=== PATIENT | female | born 1975 | race Caucasian/White ===

== ENCOUNTER 2017-10-18 12:37 | Emergency (ER) | payer MEDICAID ==
[~2017-10-18] VITALS: Ht 167.6 cm; Wt 48.3 kg
[~2017-10-18 12:37] MED LIST: AZIT250T PO; BENZ-16 PO
[2017-10-18 13:05] VITALS: BP 116/79
[2017-10-18] MEDS ORDERED: CODE118S4 PO (14:38)
[2017-10-18] MEDS ORDERED: ALBU8HFA PO (14:38)
[2017-10-18] MEDS ORDERED: AZIT-57 PO (14:38)
== END 2017-10-18 15:10 | disposition home or self-care (01) ==
LOC: ER 12:38
DX: J18.9 Pneumonia, unspecified organism (principal); Z90.710 Acquired absence of both cervix and uterus
CPT/HCPCS: 71046; 99284

== ENCOUNTER 2019-01-18 22:15 | Inpatient (IN) | payer MEDICAID ==
[~2019-01-18] VITALS: Ht 167.6 cm; Wt 66.0 kg
[~2019-01-18 22:15] MED LIST changes: -BENZ-16 PO; +METO-292 PO
[2019-01-18] MEDS ORDERED: normal saline 1000ML IV soln IVB ONE (23:35)
[2019-01-19] VITALS (10 sets, daily range): BP systolic 83–94; BP diastolic 44–64
[2019-01-19] MEDS: morphine 4 MG/ML inj SYRINge IV PRN ×2 (00:09→00:48)
[2019-01-19] MEDS: diatr meglu/diatrizoate 30ml oral sol.-(3 dose) bottle PO SCH ×3 (00:17→02:01)
[2019-01-19 00:29] LABS: BASOPHILS # (AUTO) 0.1 X10'3 (0-0.2); BASOPHILS % (AUTO) 0.6 % (0-1); EOSINOPHILS # (AUTO) 0.1 X10'3 (0-0.9); EOSINOPHILS % (AUTO) 1.1 % (0-6); HEMATOCRIT 42.2 % (35.0-45.0); HEMOGLOBIN 13.7 g/dl (12.0-16.0); LYMPHOCYTES % (AUTO) 15.8 % (21-51); MEAN CORPUSCULAR HEMOGLOBIN 30.9 PG (27.0-31.0); MEAN CORPUSCULAR HGB CONC 32.5 g/dL (33.0-36.5); MEAN CORPUSCULAR VOLUME 95.2 FL (78-98); MEAN PLATELET VOLUME 8.1 FL (7.4-10.4); MONOCYTES # (AUTO) 0.8 X10'3 (0-0.9); MONOCYTES % (AUTO) 6.2 % (2-12); NEUTROPHILS # (AUTO) 9.5 X10'3 (1.8-7.7); NEUTROPHILS % (AUTO) 76.3 % (42-75); PLATELET COUNT 295 X10'3 (140-440); RED BLOOD COUNT 4.43 X10'6 (4.20-5.60); RED CELL DISTRIBUTION WIDTH 13.1 % (11.5-14.5); WHITE BLOOD COUNT 12.5 X10'3 (4.5-11.0)
[2019-01-19 00:38] LABS: ALANINE AMINOTRANSFERASE 32 U/L (12-78); ALBUMIN 3.2 G/DL (3.4-5.0); ALBUMIN/GLOBULIN RATIO 0.8 (1.1-1.5); ALKALINE PHOSPHATASE 94 IU/L (46-116); ANION GAP 8 (8-16); ASPARTATE AMINO TRANSFERASE 26 U/L (10-37); BILIRUBIN,TOTAL 0.4 MG/DL (0.1-1.0); BLOOD UREA NITROGEN 12 MG/DL (7-18); BUN/CREATININE RATIO 16.2 (6.6-38.0); CHLORIDE 104 MMOL/L (99-107); CREATININE 0.74 MG/DL (0.40-0.90); GLUCOSE 86 MG/DL (70-104); LIPASE 121 U/L (73-393); POTASSIUM 3.3 MMOL/L (3.5-5.1); SODIUM 137 MMOL/L (135-145); TOTAL CARBON DIOXIDE 25.3 MMOL/L (24-32); TOTAL PROTEIN 7.1 G/DL (6.4-8.2); eGFR 86 ML/MIN
[2019-01-19 01:41] LABS: CLARITY,URINE CLOUDY (Clear); COLOR,URINE YELLOW (Yellow); GLUCOSE, URINE NEGATIVE (Neg); KETONES,URINE NEGATIVE (Neg); LEUKOCYTE ESTERASE ,URINE MODERATE (Neg); NITRITES, URINE POSITIVE (Neg); OCCULT BLOOD,URINE SMALL (Neg); PROTEIN,URINE NEGATIVE (Neg); UROBILINOGEN,URINE 0.2 E.U/dL (0.2-1.0)
[2019-01-19] MEDS ORDERED: DICY10CA88 PO (01:42)
[2019-01-19 01:46] LABS: UA COLLECTION TYPE NON-SPECIFIED
[2019-01-19 01:47] LABS: BACTERIA,URINE 3+ /HPF (Neg); MUCUS STRANDS MODERATE /LPF (Neg); SQUAMOUS EPITHELIAL CELL,UR MANY /LPF (FEW)
[2019-01-19 01:48] LABS: WBC,URINE 20-30 /HPF (0-4)
[2019-01-19] MEDS ORDERED: morphine 4 MG/ML inj SYRINge IV ONE ×4 (02:35→06:00)
[2019-01-19] MEDS ORDERED: normal saline 1000ML IV soln IVB ONE ×3 (02:45→08:30)
[2019-01-19] MEDS ORDERED: cephalexin 250mg capsule PO ONE (05:55)
--- NOTE | 2019-01-19 06:59 | NUR ---
PT TO BATHROOM TO EMPTY ILEOSTOMY. PT IS AMBULATORY AND INDEPENDENT. PT REPORTING PAIN, WILL UPDATE VS AND MEDICATE UPON RETURN TO ROOM
--- NOTE | 2019-01-19 08:09 | NUR ---
PTS DR. LEBRON IN [facility] [phone] OR [phone]
[2019-01-19] MEDS ORDERED: HYDROmorphone 1 mg/ml syringe IV PRN (08:20)
[2019-01-19] MEDS ORDERED: ondansetron/PF 4mg/2ml inj IV ONE (08:20)
[2019-01-19] MEDS ORDERED: normal saline 1000ml 1,000 ML IV ONE (08:28)
[2019-01-19] MEDS ORDERED: fentaNYL/PF 50MCG/1 ML 2ML syringe IV PRN (08:30)
--- NOTE | 2019-01-19 08:30 | NUR ---
DR PAEZ INFORMED PT BP 92/56, CANCELED DILAUDID AND WILL ORDER LITER NS AND FENTANYL, PT TO BE ADMITTED AND HAVE GI CONSULT HERE.
[2019-01-19] MEDS ORDERED: DICY20TA17 PO (08:38)
--- NOTE | 2019-01-19 08:47 | NUR ---
OBTAINED STOOL SAMPLE FROM ILEOSTOMY SITE.
[2019-01-19] MEDS ORDERED: potassium Cl 40MEQ/NS 500ml 500 ML IV PRN ×2 (09:15)
[2019-01-19] MEDS ORDERED: magnesium Cl slow-release 64mg tablet PO PRN (09:15)
[2019-01-19] MEDS ORDERED: HYDROcodone/acetaminophen 10/325mg tab PO PRN (09:15)
[2019-01-19] MEDS ORDERED: magnesium hydroxide 30ml (MOM) UD suspension PO PRN (09:15)
[2019-01-19] MEDS ORDERED: magnesium 4gm in 100ml NS 100 ML IV PRN (09:15)
[2019-01-19] MEDS ORDERED: acetaminophen 325mg tablet PO PRN ×2 (09:15)
[2019-01-19] MEDS ORDERED: mag hydrox/Alum hydrox/simeth 30ml oral suspension PO PRN (09:15)
[2019-01-19] MEDS ORDERED: potassium Cl 20 mEq SR tablet PO PRN (09:15)
[2019-01-19] MEDS ORDERED: morphine 4 MG/ML inj SYRINge IV PRN ×2 (09:15)
[2019-01-19] MEDS ORDERED: HYDROcodone/acetaminophen 5mg/325mg tablet PO PRN (09:15)
[2019-01-19] MEDS ORDERED: magnesium 2GM in 50ml NS 50 ML IV PRN (09:15)
--- NOTE | 2019-01-19 09:50 | NUR ---
ABX ORDERED, CALLED [facility] TO VERIFY IF WANTS BLOOD CULTURE, [facility] STATES YES TO ONE BLOOD CULTURE, LAB NOTIFIED, DID NOT START ABX YET, WILL START AFTER BC DRAWN, NEED ANOTHER STOOL SAMPLE PER ORDERS PREVIOUS SAMPLE WAS NOT ENOUGH.
[2019-01-19] MEDS: CefTRIAXone 2gm/D5W 50ml 50 ML IV SCH (10:18)
[2019-01-19] MEDS: normal saline 1000ml 1,000 ML IV SCH ×2 (10:18→21:59)
--- NOTE | 2019-01-19 10:19 | NUR ---
ADMINISTERED IV ABX AND IV FLUIDS PER ORDERS
[2019-01-19 11:27] LABS: C DIFF ANTIGEN NEGATIVE (NEGATIVE); C DIFF SPECIMEN=DIARRHEA? ACCEPTABLE; C DIFFICILE TOXINS A&B NEGATIVE (Neg)
--- NOTE | 2019-01-19 12:23 | NUR ---
OUMAR CHAUHAN FROM GI LAB CAME AND TOOK PATIENT TO GI LAB, THEN PATIENT IS TO GO TO ROOM
--- NOTE | 2019-01-19 12:42 | NUR ---
Patient in room ED 14. I have received report from Bhumika CHAUHAN and had the opportunity to ask questions and assume patient care.
--- NOTE | 2019-01-19 12:45 | NUR ---
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
[2019-01-19] MEDS ORDERED: MIDAZolam 5mg/5ml vial ONE (13:01)
[2019-01-19] MEDS ORDERED: fentaNYL/PF 50MCG/1 ML 2ML syringe ONE (13:01)
--- NOTE | 2019-01-19 17:46 | NUR ---
Received patient report from Bhumika CHAUHAN. Awaiting arrival to room 347A.
--- NOTE | 2019-01-19 18:10 | NUR ---
2 RN skin check done with Neo CHAUHAN. No skin issues found.
--- NOTE | 2019-01-19 18:10 | NUR ---
Patient arrived to room 347A. Patient oriented to room, call light, bed controls. VSS.
--- NOTE | 2019-01-19 18:30 | NUR ---
Received report from Reyna CHAUHAN pt arrived from GI lab, in no apparent distress, call light and items of freq use within reach.
--- NOTE | 2019-01-19 18:36 | NUR ---
Problems reprioritized. Patient report given, questions answered & plan of care reviewed with Kendra CHAUHAN.
[2019-01-19] MEDS: HYDROmorphone 1 mg/ml syringe IV PRN ×2 (19:10→23:16)
[2019-01-19] MEDS: heparin, porcine 5000 units/ml vial SQ SCH (20:00)
[2019-01-19] MEDS ORDERED: temazepam 15mg capsule PO PRN (21:00)
[2019-01-20 00:02] VITALS: BP 84/54
[2019-01-20 02:45] VITALS: BP 90/66
[2019-01-20] MEDS: HYDROmorphone 1 mg/ml syringe IV PRN ×5 (03:17→22:07)
[2019-01-20] MEDS: ondansetron/PF 4mg/2ml inj IV PRN ×3 (04:29→19:17)
[2019-01-20] MEDS: normal saline 1000ml 1,000 ML IV SCH ×3 (05:15→17:37)
[2019-01-20 05:55] LABS: BASOPHILS # (AUTO) 0.1 X10'3 (0-0.2); BASOPHILS % (AUTO) 1.1 % (0-1); EOSINOPHILS # (AUTO) 0.3 X10'3 (0-0.9); EOSINOPHILS % (AUTO) 3.8 % (0-6); HEMATOCRIT 37.6 % (35.0-45.0); HEMOGLOBIN 12.1 g/dl (12.0-16.0); LYMPHOCYTES # (AUTO) 1.3 X10'3 (1.1-4.8); LYMPHOCYTES % (AUTO) 17.7 % (21-51); MEAN CORPUSCULAR HGB CONC 32.3 g/dL (33.0-36.5); MEAN CORPUSCULAR VOLUME 96.2 FL (78-98); MEAN PLATELET VOLUME 8.3 FL (7.4-10.4); MONOCYTES # (AUTO) 0.4 X10'3 (0-0.9); MONOCYTES % (AUTO) 6.3 % (2-12); NEUTROPHILS % (AUTO) 71.1 % (42-75); PLATELET COUNT 240 X10'3 (140-440); RED BLOOD COUNT 3.91 X10'6 (4.20-5.60); RED CELL DISTRIBUTION WIDTH 13.4 % (11.5-14.5); WHITE BLOOD COUNT 7.1 X10'3 (4.5-11.0)
[2019-01-20 06:05] LABS: ALBUMIN 2.3 G/DL (3.4-5.0); ANION GAP 7 (8-16); BLOOD UREA NITROGEN 2 MG/DL (7-18); BUN/CREATININE RATIO 4.8 (6.6-38.0); CALCIUM 7.8 MG/DL (8.5-10.1); CHLORIDE 108 MMOL/L (99-107); CREATININE 0.42 MG/DL (0.40-0.90); GLUCOSE 82 MG/DL (70-104); MAGNESIUM 1.7 MG/DL (1.5-2.4); POTASSIUM 3.3 MMOL/L (3.5-5.1); SODIUM 138 MMOL/L (135-145); TOTAL CARBON DIOXIDE 23.1 MMOL/L (24-32); eGFR > 90 ML/MIN
--- NOTE | 2019-01-20 06:28 | NUR ---
Gave report to Kathi CHAUHAN pt is awake and alert on RA in no apparent distress
--- NOTE | 2019-01-20 06:39 | NUR ---
Patient in room GINA 347. I have received report from GISSEL Mckeon and had the opportunity to ask questions and assume patient care.
[2019-01-20 07:30] VITALS: BP 82/51
[2019-01-20] MEDS: pantoprazole 40mg Tablet.DR PO SCH (07:55)
[2019-01-20] MEDS: CefTRIAXone 2gm/D5W 50ml 50 ML IV SCH (07:55)
[2019-01-20] MEDS: K and/or MAG REPLACEMENT MC SCH (08:00)
[2019-01-20] MEDS: heparin, porcine 5000 units/ml vial SQ SCH ×2 (08:00→20:00)
[2019-01-20] MEDS: potassium Cl 20 mEq SR tablet PO PRN ×3 (08:05→17:36)
[2019-01-20 11:30] VITALS: BP 83/49
--- NOTE | 2019-01-20 16:57 | NUR ---
Malnutrition consult: Pt seen at bedside states she has recently lost some weight secondary to her father passing. Pt reports UBW of 145# which is current documented wt using chair scale. Documented PO intake 75% on regular diet meeting nutrient needs. Pt with no documented edema or decrease in muscle strength. No visible fat or muscle wasting noted at the time of RD visit. Pt currently does not meet criteria for malnutrition. Noted that pt with ileostomy d/t partial colectomy, pt denies any questions or concerns about nutrition therapy with ileostomy stating she has had it for over 4 years and that she is to be getting a takedown soon. Pt denies any food allergies, difficulty chewing/swallowing, or constipation/diarrhea. Will continue to follow. Addendum: 01/20/19 at [address] Amended: Links added.
--- NOTE | 2019-01-20 18:19 | NUR ---
Problems reprioritized. Patient report given, questions answered & plan of care reviewed with GISSEL Mckeon.
--- NOTE | 2019-01-20 18:36 | NUR ---
Received report from Kathi CHAUHAN pt states she is nauseous, on RA
[2019-01-20 19:00] VITALS: BP 90/53
[2019-01-20] MEDS ORDERED: metoclopramide 5 mg/ml inj IV PRN (23:15)
[2019-01-21 00:23] VITALS: BP 87/56
[2019-01-21] MEDS: normal saline 1000ml 1,000 ML IV SCH (02:55)
[2019-01-21 05:22] LABS: BASOPHILS % (AUTO) 0.6 % (0-1); EOSINOPHILS # (AUTO) 0.2 X10'3 (0-0.9); EOSINOPHILS % (AUTO) 3.6 % (0-6); HEMOGLOBIN 11.5 g/dl (12.0-16.0); LYMPHOCYTES # (AUTO) 1.2 X10'3 (1.1-4.8); LYMPHOCYTES % (AUTO) 21.7 % (21-51); MEAN CORPUSCULAR HEMOGLOBIN 31.3 PG (27.0-31.0); MEAN CORPUSCULAR HGB CONC 32.9 g/dL (33.0-36.5); MEAN CORPUSCULAR VOLUME 95.1 FL (78-98); MEAN PLATELET VOLUME 7.9 FL (7.4-10.4); MONOCYTES # (AUTO) 0.4 X10'3 (0-0.9); MONOCYTES % (AUTO) 7.6 % (2-12); NEUTROPHILS # (AUTO) 3.7 X10'3 (1.8-7.7); NEUTROPHILS % (AUTO) 66.5 % (42-75); PLATELET COUNT 233 X10'3 (140-440); RED BLOOD COUNT 3.68 X10'6 (4.20-5.60); RED CELL DISTRIBUTION WIDTH 12.8 % (11.5-14.5); WHITE BLOOD COUNT 5.6 X10'3 (4.5-11.0)
[2019-01-21 05:49] LABS: ALBUMIN 2.1 G/DL (3.4-5.0); ANION GAP 5 (8-16); BLOOD UREA NITROGEN 5 MG/DL (7-18); BUN/CREATININE RATIO 8.8 (6.6-38.0); CALCIUM 7.8 MG/DL (8.5-10.1); CHLORIDE 110 MMOL/L (99-107); CREATININE 0.57 MG/DL (0.40-0.90); GLUCOSE 101 MG/DL (70-104); MAGNESIUM 1.7 MG/DL (1.5-2.4); POTASSIUM 3.6 MMOL/L (3.5-5.1); SODIUM 141 MMOL/L (135-145); TOTAL CARBON DIOXIDE 26.4 MMOL/L (24-32); eGFR > 90 ML/MIN
--- NOTE | 2019-01-21 06:44 | NUR ---
Gave report to Sydni CHAUHAN pt is awake and alert requesting pain meds on RA in no apparent distress
--- NOTE | 2019-01-21 06:57 | NUR ---
Patient in room GINA 347. I have received report from Kendra CHAUHAN and had the opportunity to ask questions and assume patient care.
[2019-01-21 07:00] VITALS: BP 94/62
[2019-01-21] MEDS: pantoprazole 40mg Tablet.DR PO SCH (07:34)
[2019-01-21] MEDS: CefTRIAXone 2gm/D5W 50ml 50 ML IV SCH (07:34)
[2019-01-21] MEDS: HYDROmorphone 1 mg/ml syringe IV PRN (07:34)
[2019-01-21] MEDS: heparin, porcine 5000 units/ml vial SQ SCH (07:40)
[2019-01-21] MEDS: K and/or MAG REPLACEMENT MC SCH (08:00)
[2019-01-21 11:00] VITALS: BP 92/62
[2019-01-21] MEDS ORDERED: HYDR-4383 PO (13:07)
[2019-01-21] MEDS ORDERED: BUDE3CAP15 PO (13:07)
--- NOTE | 2019-01-21 13:59 | NUR ---
New prescription for Budesonide pill called in to [facility] in [facility]. A handwritten prescription for [place] given to patient. Discharge instructions given to patient and verbalized understanding of all instructions made. Peripheral IV catheter removed, tip intact. Patient will call a family for a ride.
--- NOTE | 2019-01-21 14:20 | NUR ---
Discharge patient home. Discharge instructions given to patient, she verbalized understanding of all instructions made. Peripheral IV catheter removed, tip intact. Belongings sent with the patient. Prescription for Budesonide pill called in to [facility] in [facility]. Handwritten prescription for [place] was given to patient
== END 2019-01-21 14:32 | disposition home or self-care (01) | DRG 245 ==
LOC: ER 22:16 → ED HOLD 01-19 09:15 → SUR 3N 01-19 18:03
PROVIDERS: ADMIT Internal Medicine; ATTEND Internal Medicine
PROC: 0DBB8ZX Excision of Ileum, Via Natural or Artificial Opening Endoscopic, Diagnostic (ICD-10-PCS; principal; 2019-01-19)
DX: K51.00 Ulcerative (chronic) pancolitis without complications (principal); I95.9 Hypotension, unspecified; K52.9 Noninfective gastroenteritis and colitis, unspecified; E87.6 Hypokalemia; M19.90 Unspecified osteoarthritis, unspecified site; N39.0 Urinary tract infection, site not specified; Z93.2 Ileostomy status; Z90.49 Acquired absence of other specified parts of digestive tract; Z90.710 Acquired absence of both cervix and uterus; Z98.891 History of uterine scar from previous surgery
CPT/HCPCS: 36415; 44382; 74176; 80048; 80053; 81001; 83605; 83690; 83735; 85025; 87040; 87045; 87046; 87070; 87324; 87449; 89055; 96361; 96374; 96375; 96376; 99152; 99285; A4620; G0378; J0696; J1170; J1644; J2250; J2270; J2405; J2765; J3010; J7030; Q9963

== ENCOUNTER 2019-11-27 00:07 | Emergency (ER) | payer MEDICAID, OTHER ==
[~2019-11-27] VITALS: Ht 167.6 cm; Wt 150.0 kg
[~2019-11-27 00:07] MED LIST changes: -AZIT250T PO; +BUDE3CAP15 PO; +DICY20TA17 PO; +HYDR-4383 PO; -METO-292 PO
[2019-11-27] MEDS ORDERED: FAMC500T23 PO (00:36)
[2019-11-27] MEDS ORDERED: LIDO30CR23 TOP (00:37)
[2019-11-27] MEDS ORDERED: ketorolac tromethamine 15mg/ml inj. IM ONE (01:05)
[2019-11-27 01:15] VITALS: BP 105/64
== END 2019-11-27 01:16 | disposition home or self-care (01) ==
LOC: ER 00:08
DX: B02.9 Zoster without complications (principal); M19.90 Unspecified osteoarthritis, unspecified site; Z90.710 Acquired absence of both cervix and uterus; Z98.890 Other specified postprocedural states; Z79.899 Other long term (current) drug therapy
CPT/HCPCS: 96372; 99283; J1885

== ENCOUNTER 2019-11-30 19:06 | Emergency (ER) | payer OTHER ==
[~2019-11-30] VITALS: Ht 167.6 cm; Wt 72.0 kg
[~2019-11-30 19:06] MED LIST changes: +FAMC500T23 PO; +LIDO30CR23 TOP
[2019-11-30 19:58] LABS: BASOPHILS # (AUTO) 0.1 X10'3 (0-0.2); EOSINOPHILS # (AUTO) 0.1 X10'3 (0-0.9); EOSINOPHILS % (AUTO) 1.1 % (0-6); HEMOGLOBIN 13.2 g/dl (12.0-16.0); LYMPHOCYTES # (AUTO) 2.2 X10'3 (1.1-4.8); LYMPHOCYTES % (AUTO) 22.7 % (21-51); MEAN CORPUSCULAR HEMOGLOBIN 31.8 PG (27.0-31.0); MEAN CORPUSCULAR HGB CONC 33.9 g/dL (33.0-36.5); MEAN PLATELET VOLUME 8.4 FL (7.4-10.4); MONOCYTES # (AUTO) 0.5 X10'3 (0-0.9); MONOCYTES % (AUTO) 5.7 % (2-12); NEUTROPHILS # (AUTO) 6.7 X10'3 (1.8-7.7); NEUTROPHILS % (AUTO) 69.5 % (42-75); PLATELET COUNT 285 X10'3 (140-440); RED BLOOD COUNT 4.14 X10'6 (4.20-5.60); RED CELL DISTRIBUTION WIDTH 13.5 % (11.5-14.5); WHITE BLOOD COUNT 9.6 X10'3 (4.5-11.0)
[2019-11-30 20:10] LABS: ALANINE AMINOTRANSFERASE 18 U/L (12-78); ALBUMIN 3.8 G/DL (3.4-5.0); ALBUMIN/GLOBULIN RATIO 1.1 (1.1-1.5); ALKALINE PHOSPHATASE 68 IU/L (46-116); ANION GAP 10 (8-16); ASPARTATE AMINO TRANSFERASE 23 U/L (10-37); BILIRUBIN,TOTAL 0.4 MG/DL (0.1-1.0); BLOOD UREA NITROGEN 16 MG/DL (7-18); CHLORIDE 105 MMOL/L (99-107); GLUCOSE 83 MG/DL (70-104); LIPASE 194 U/L (73-393); POTASSIUM 3.6 MMOL/L (3.5-5.1); SODIUM 137 MMOL/L (135-145); TOTAL CARBON DIOXIDE 21.6 MMOL/L (24-32); TOTAL PROTEIN 7.3 G/DL (6.4-8.2); eGFR 78 ML/MIN
[2019-11-30 20:11] LABS: URINE HCG NEGATIVE (NEG)
[2019-11-30 20:22] LABS: CLARITY,URINE CLEAR (Clear); COLOR,URINE YELLOW (Yellow); GLUCOSE, URINE NEGATIVE (Neg); KETONES,URINE NEGATIVE (Neg); LEUKOCYTE ESTERASE ,URINE TRACE (Neg); NITRITES, URINE POSITIVE (Neg); OCCULT BLOOD,URINE SMALL (Neg); PROTEIN,URINE NEGATIVE (Neg); UROBILINOGEN,URINE 0.2 E.U/dL (0.2-1.0)
[2019-11-30 20:23] LABS: UA COLLECTION TYPE CLN CATCH MIDSTREAM
[2019-11-30 20:28] LABS: RBC,URINE NONE SEEN /HPF (0-2)
[2019-11-30 20:29] LABS: BACTERIA,URINE 4+ /HPF (Neg); SQUAMOUS EPITHELIAL CELL,UR MODERATE /LPF (FEW); TRANSITIONAL EPI CELLS,URINE FEW /HPF
[2019-11-30] MEDS ORDERED: HYDROmorphone 1 mg/ml syringe IV ONE (21:00)
[2019-11-30] MEDS ORDERED: ondansetron/PF 4mg/2ml inj IV ONE (21:00)
[2019-11-30] MEDS ORDERED: normal saline 1000ML IV soln IVB ONE (21:00)
[2019-11-30 21:47] VITALS: BP 108/66
--- NOTE | 2019-12-04 17:29 | NUR ---
PT CALLED AND DISCUSSED HER LAB RESULTS OF 11/30/2019. PT INFORMED THAT SHE HAS A UTI AND THAT AN ABX IS NEEDED. PT REQUESTED THAT MEDICATION BE CALLED INTO [facility] ON [address]. CIPRO 500MG PO BID x7 DAYS, #14 CALLED TO [facility] REQUESTED
== END 2019-11-30 21:54 | disposition home or self-care (01) ==
LOC: ER 19:07
DX: R10.9 Unspecified abdominal pain (principal); M19.90 Unspecified osteoarthritis, unspecified site; Z90.710 Acquired absence of both cervix and uterus; Z98.890 Other specified postprocedural states; Z79.899 Other long term (current) drug therapy
CPT/HCPCS: 36415; 74176; 80053; 81001; 81025; 83690; 85025; 87077; 87088; 87186; 96374; 96375; 99284; J1170; J2405; J7030

== ENCOUNTER 2020-03-05 23:47 | Inpatient (IN) | payer OTHER ==
[~2020-03-05] VITALS: Ht 317.5 cm; Wt 71.4 kg
[2020-03-06] MEDS ORDERED: normal saline 1000ML IV soln IVB ONE (00:25)
[2020-03-06] MEDS ORDERED: ondansetron/PF 4mg/2ml inj IV ONE (00:25)
[2020-03-06] MEDS ORDERED: fentaNYL/PF 50MCG/1 ML 2ML syringe IV ONE ×2 (00:25→01:25)
[2020-03-06 00:47] LABS: BASOPHILS % (AUTO) 0.2 % (0-1); EOSINOPHILS # (AUTO) 0.3 X10'3 (0-0.9); HEMATOCRIT 40.7 % (35.0-45.0); HEMOGLOBIN 13.6 g/dl (12.0-16.0); LYMPHOCYTES # (AUTO) 1.4 X10'3 (1.1-4.8); MEAN CORPUSCULAR HEMOGLOBIN 31.9 PG (27.0-31.0); MEAN CORPUSCULAR HGB CONC 33.5 g/dL (33.0-36.5); MEAN CORPUSCULAR VOLUME 95.3 FL (78-98); MONOCYTES # (AUTO) 0.6 X10'3 (0-0.9); NEUTROPHILS # (AUTO) 6.6 X10'3 (1.8-7.7); NEUTROPHILS % (AUTO) 73.8 % (42-75); PLATELET COUNT 251 X10'3 (140-440); RED BLOOD COUNT 4.27 X10'6 (4.20-5.60); RED CELL DISTRIBUTION WIDTH 13.3 % (11.5-14.5); WHITE BLOOD COUNT 8.9 X10'3 (4.5-11.0)
[2020-03-06 00:52] LABS: ALANINE AMINOTRANSFERASE 40 U/L (12-78); ALBUMIN 3.1 G/DL (3.4-5.0); ALBUMIN/GLOBULIN RATIO 0.9 (1.1-1.5); ALKALINE PHOSPHATASE 68 IU/L (46-116); ANION GAP 7 (8-16); ASPARTATE AMINO TRANSFERASE 31 U/L (10-37); BILIRUBIN,TOTAL 0.3 MG/DL (0.1-1.0); BLOOD UREA NITROGEN 10 MG/DL (7-18); BUN/CREATININE RATIO 11.8 (6.6-38.0); CALCIUM 8.6 MG/DL (8.5-10.1); CHLORIDE 106 MMOL/L (99-107); CREATININE 0.85 MG/DL (0.40-0.90); GLUCOSE 117 MG/DL (70-104); LIPASE 190 U/L (73-393); POTASSIUM 3.3 MMOL/L (3.5-5.1); SODIUM 138 MMOL/L (135-145); TOTAL PROTEIN 6.5 G/DL (6.4-8.2); eGFR 73 ML/MIN
[2020-03-06 01:23] LABS: HCG SERUM QL NEGATIVE
[2020-03-06] MEDS ORDERED: LIDOcaine 2% 10ml TOPICAL JELLY (Urojet) MM ONE (01:25)
[2020-03-06 01:28] LABS: CLARITY,URINE CLEAR (Clear); COLOR,URINE YELLOW (Yellow); GLUCOSE, URINE NEGATIVE (Neg); KETONES,URINE NEGATIVE (Neg); LEUKOCYTE ESTERASE ,URINE NEGATIVE (Neg); NITRITES, URINE NEGATIVE (Neg); OCCULT BLOOD,URINE TRACE-INTACT (Neg); PROTEIN,URINE NEGATIVE (Neg); UROBILINOGEN,URINE 0.2 E.U/dL (0.2-1.0)
[2020-03-06 01:35] LABS: UA COLLECTION TYPE CLN CATCH MIDSTREAM
[2020-03-06 01:36] LABS: BACTERIA,URINE 1+ /HPF (Neg); RBC,URINE 0-2 /HPF (0-2); SQUAMOUS EPITHELIAL CELL,UR MODERATE /LPF (FEW); WBC,URINE 0-4 /HPF (0-4)
[2020-03-06] MEDS ORDERED: NO HOME MEDS (01:40)
--- NOTE | 2020-03-06 01:41 | NUR ---
Dr. Saucedo with pt in room. pt states she does not take any home meds. Will start NG tube once Dr. Saucedo is finishing assessing pt.
[2020-03-06] MEDS ORDERED: potassium Cl 20mEq in NS 1,000 ML IV SCH (01:59)
[2020-03-06] MEDS ORDERED: acetaminophen 325mg tablet PO PRN (02:00)
[2020-03-06] MEDS ORDERED: naloxone 0.4 mg/ml inj IV PRN (02:05)
[2020-03-06] MEDS ORDERED: CADD PCA waste documentation MC PRN (02:05)
[2020-03-06] MEDS ORDERED: methylPREDNISolone sod succ/PF 40mg inj. IV ONE (02:05)
[2020-03-06 03:05] VITALS: BP 107/59
[2020-03-06] MEDS: HYDROmorphone/NS 1 mg/ml CADD 50 ML IV SCH ×11 (04:15→23:00)
[2020-03-06 06:00] VITALS: BP 91/64
--- NOTE | 2020-03-06 06:25 | NUR ---
Patient in room PCU 3025. I have received report from GISSEL Allen and had the opportunity to ask questions and assume patient care.
--- NOTE | 2020-03-06 06:26 | NUR ---
Problems reprioritized. Patient report given, questions answered & plan of care reviewed with GISSEL Chavez.
[2020-03-06] MEDS: methylPREDNISolone sod succ/PF 40mg inj. IV SCH ×3 (07:39→23:55)
[2020-03-06] MEDS: ondansetron/PF 4mg/2ml inj IV PRN ×2 (07:39→13:26)
[2020-03-06] MEDS: heparin, porcine 5000 units/ml vial SQ SCH ×2 (07:45→20:33)
[2020-03-06] MEDS: K and/or MAG REPLACEMENT MC SCH ×2 (08:00→20:00)
[2020-03-06] MEDS ORDERED: magnesium 4gm in 100ml NS 100 ML IV PRN (10:30)
[2020-03-06 11:00] VITALS: BP 81/50
[2020-03-06] MEDS: normal saline 1000ml 1,000 ML IV SCH ×2 (11:41→20:30)
[2020-03-06] MEDS: potassium CL 10mEq/100ml bag 100 ML IV PRN ×4 (11:45→23:54)
[2020-03-06 15:00] VITALS: BP 85/58
--- NOTE | 2020-03-06 16:10 | NUR ---
Patient in room PCU 3025B. I have received report from Kathy CHAUHAN and had the opportunity to ask questions and assume patient care.
--- NOTE | 2020-03-06 16:10 | NUR ---
Problems reprioritized. Patient report given, questions answered & plan of care reviewed with GISSEL Borges.
--- NOTE | 2020-03-06 17:57 | NUR ---
I have assessed patient and agree with physical assessment documentation done by Kathy CHAUHAN
[2020-03-06 18:00] VITALS: BP 125/80
--- NOTE | 2020-03-06 18:40 | NUR ---
Patient in room U 3025-B. I have received report from GISSEL Borges and had the opportunity to ask questions and assume patient care.
--- NOTE | 2020-03-06 18:45 | NUR ---
Problems reprioritized. Patient report given, questions answered & plan of care reviewed with Chloé CHAUHAN.
[2020-03-07] MEDS: HYDROmorphone/NS 1 mg/ml CADD 50 ML IV SCH ×12 (01:00→23:00)
[2020-03-07 02:00] VITALS: BP 97/59
--- NOTE | 2020-03-07 03:12 | NUR ---
Received report from Chloé CHAUHAN in PCU. Patient arrived on unit on a wheelchair at 0330. N.S. and potassium infusing. Patient has a CADD, vss, ra, a/o. No sigh of distress will continue to monitor
[2020-03-07 04:42] VITALS: BP 90/58
--- NOTE | 2020-03-07 06:15 | NUR ---
Patient in room GINA 354. I have received report from Penny CHAUHAN and had the opportunity to ask questions and assume patient care.
--- NOTE | 2020-03-07 06:22 | NUR ---
Problems reprioritized. Patient report given, questions answered & plan of care reviewed with Reyna CHAUHAN.
[2020-03-07] MEDS: normal saline 1000ml 1,000 ML IV SCH ×2 (06:30→10:11)
[2020-03-07 06:55] LABS: BASOPHILS % (AUTO) 0.1 % (0-1); EOSINOPHILS % (AUTO) 0 % (0-6); HEMATOCRIT 37.7 % (35.0-45.0); HEMOGLOBIN 12.4 g/dl (12.0-16.0); LYMPHOCYTES # (AUTO) 0.4 X10'3 (1.1-4.8); LYMPHOCYTES % (AUTO) 8.1 % (21-51); MEAN CORPUSCULAR HEMOGLOBIN 31.5 PG (27.0-31.0); MEAN CORPUSCULAR HGB CONC 32.8 g/dL (33.0-36.5); MEAN CORPUSCULAR VOLUME 96.1 FL (78-98); MEAN PLATELET VOLUME 8.2 FL (7.4-10.4); MONOCYTES # (AUTO) 0.6 X10'3 (0-0.9); MONOCYTES % (AUTO) 12.4 % (2-12); NEUTROPHILS # (AUTO) 3.7 X10'3 (1.8-7.7); NEUTROPHILS % (AUTO) 79.4 % (42-75); PLATELET COUNT 242 X10'3 (140-440); RED BLOOD COUNT 3.93 X10'6 (4.20-5.60); RED CELL DISTRIBUTION WIDTH 13.9 % (11.5-14.5); WHITE BLOOD COUNT 4.6 X10'3 (4.5-11.0)
[2020-03-07 07:00] VITALS: BP 89/54
[2020-03-07 07:24] LABS: ALANINE AMINOTRANSFERASE 34 U/L (12-78); ALBUMIN/GLOBULIN RATIO 0.9 (1.1-1.5); ALKALINE PHOSPHATASE 61 IU/L (46-116); ANION GAP 6 (8-16); ASPARTATE AMINO TRANSFERASE 21 U/L (10-37); BILIRUBIN,TOTAL 0.5 MG/DL (0.1-1.0); BLOOD UREA NITROGEN 13 MG/DL (7-18); BUN/CREATININE RATIO 19.1 (6.6-38.0); CALCIUM 8.2 MG/DL (8.5-10.1); CHLORIDE 106 MMOL/L (99-107); CREATININE 0.68 MG/DL (0.40-0.90); GLUCOSE 129 MG/DL (70-104); POTASSIUM 4.2 MMOL/L (3.5-5.1); SODIUM 139 MMOL/L (135-145); TOTAL CARBON DIOXIDE 26.6 MMOL/L (24-32); TOTAL PROTEIN 6.4 G/DL (6.4-8.2); eGFR > 90 ML/MIN
[2020-03-07] MEDS: K and/or MAG REPLACEMENT MC SCH ×2 (08:00→18:59)
[2020-03-07] MEDS: methylPREDNISolone sod succ/PF 40mg inj. IV SCH ×2 (08:46→15:05)
[2020-03-07] MEDS: heparin, porcine 5000 units/ml vial SQ SCH ×2 (08:47→20:00)
[2020-03-07 09:27] VITALS: BP 91/53
--- NOTE | 2020-03-07 11:10 | NUR ---
Dr. Gay informed of BP of 91/, no new orders at this time.
--- NOTE | 2020-03-07 12:00 | NUR ---
PATIENT WENT WALKING OUT OF TH ROOM.
--- NOTE | 2020-03-07 12:27 | NUR ---
Student Medication Administration: For this medication-pass time frame, all medication were reviewed, dispensed, administered and documented per hospital policy by [facility] Student Nurse.
--- NOTE | 2020-03-07 12:36 | NUR ---
PATIENT CAME BACK FROM WALKING AND TAKING REST AND NG TUBE IS HOOKED BACK UP.
[2020-03-07 13:47] VITALS: BP 96/60
[2020-03-07 18:00] VITALS: BP 105/70
--- NOTE | 2020-03-07 18:30 | NUR ---
Problems reprioritized. Patient report given, questions answered & plan of care reviewed with James CHAUHAN.
[2020-03-08] VITALS: BP 101/68
[2020-03-08] MEDS: HYDROmorphone/NS 1 mg/ml CADD 50 ML IV SCH ×5 (01:00→09:00)
[2020-03-08] MEDS: methylPREDNISolone sod succ/PF 40mg inj. IV SCH ×3 (01:18→16:49)
[2020-03-08] MEDS: normal saline 1000ml 1,000 ML IV SCH ×3 (02:30→16:48)
--- NOTE | 2020-03-08 06:10 | NUR ---
RECEIVED REPORT FROM LEONEL CHAUHAN
[2020-03-08 06:38] LABS: BASOPHILS % (AUTO) 0 % (0-1); EOSINOPHILS % (AUTO) 0.1 % (0-6); HEMATOCRIT 35.7 % (35.0-45.0); HEMOGLOBIN 11.6 g/dl (12.0-16.0); LYMPHOCYTES # (AUTO) 0.4 X10'3 (1.1-4.8); LYMPHOCYTES % (AUTO) 10.3 % (21-51); MEAN CORPUSCULAR HEMOGLOBIN 31.2 PG (27.0-31.0); MEAN CORPUSCULAR HGB CONC 32.5 g/dL (33.0-36.5); MEAN CORPUSCULAR VOLUME 95.9 FL (78-98); MEAN PLATELET VOLUME 8.5 FL (7.4-10.4); MONOCYTES # (AUTO) 0.5 X10'3 (0-0.9); MONOCYTES % (AUTO) 11.5 % (2-12); NEUTROPHILS # (AUTO) 3.1 X10'3 (1.8-7.7); NEUTROPHILS % (AUTO) 78.1 % (42-75); PLATELET COUNT 235 X10'3 (140-440); RED BLOOD COUNT 3.72 X10'6 (4.20-5.60); RED CELL DISTRIBUTION WIDTH 13.9 % (11.5-14.5); WHITE BLOOD COUNT 3.9 X10'3 (4.5-11.0)
[2020-03-08 06:40] LABS: ALANINE AMINOTRANSFERASE 29 U/L (12-78); ALBUMIN/GLOBULIN RATIO 0.9 (1.1-1.5); ALKALINE PHOSPHATASE 55 IU/L (46-116); ANION GAP 6 (8-16); ASPARTATE AMINO TRANSFERASE 18 U/L (10-37); BILIRUBIN,TOTAL 0.3 MG/DL (0.1-1.0); BLOOD UREA NITROGEN 17 MG/DL (7-18); BUN/CREATININE RATIO 26.6 (6.6-38.0); CALCIUM 8.3 MG/DL (8.5-10.1); CHLORIDE 105 MMOL/L (99-107); CREATININE 0.64 MG/DL (0.40-0.90); GLUCOSE 113 MG/DL (70-104); POTASSIUM 4.2 MMOL/L (3.5-5.1); SODIUM 140 MMOL/L (135-145); TOTAL CARBON DIOXIDE 29.3 MMOL/L (24-32); TOTAL PROTEIN 6.4 G/DL (6.4-8.2); eGFR > 90 ML/MIN
[2020-03-08 08:00] VITALS: BP 97/67
[2020-03-08] MEDS: K and/or MAG REPLACEMENT MC SCH ×2 (08:00→20:00)
[2020-03-08] MEDS: heparin, porcine 5000 units/ml vial SQ SCH ×2 (08:41→20:00)
[2020-03-08 11:00] VITALS: BP 105/67
[2020-03-08] MEDS ORDERED: HYDROmorphone inj. 0.5 MG/0.5 ML DISP.SYRIN IV PRN (11:50)
[2020-03-08] MEDS ORDERED: HYDROcodone/acetaminophen 5mg/325mg tablet PO PRN (11:50)
[2020-03-08] MEDS: HYDROcodone/acetaminophen 10/325mg tab PO PRN ×3 (12:56→20:41)
--- NOTE | 2020-03-08 16:33 | NUR ---
DARIAN 1210 RE: DEMARIO [id number] PATIENT IS HOPING SHE CAN GO HOME LATER TONIGHT OR FIRST THING IN THE MORNING, SHE HAS TO WORK AT 0800.
--- NOTE | 2020-03-08 18:25 | NUR ---
Problems reprioritized. Patient report given, questions answered & plan of care reviewed with LEONEL CHAUHAN.
[2020-03-08 19:00] VITALS: BP 106/79
--- NOTE | 2020-03-08 20:24 | NUR ---
I called Dr. Saucedo regarding possible d/c orders and d/c pain medicine script. It was conveyed in report that Dr. De Jesus,the day hospitalist was going to discuss having the night hospitalist send patient home with pain medicine script if she tolerated her dinner. There are no d/c orders in the computer from Dr. De Jesus and nothing in the progress note about a discharge tonight but to be done in the am. Dr. Saucedo is not going to d/c the patient home or write pain medicine scripts since he does not know the patient and nothing was relayed to him from Dr. De Jesus.
[2020-03-09] VITALS: BP 112/70
[2020-03-09] MEDS: methylPREDNISolone sod succ/PF 40mg inj. IV SCH ×2 (00:10→08:16)
[2020-03-09] MEDS: HYDROcodone/acetaminophen 10/325mg tab PO PRN (04:16)
[2020-03-09 04:55] LABS: BASOPHILS % (AUTO) 0 % (0-1); EOSINOPHILS % (AUTO) 0 % (0-6); HEMATOCRIT 38.7 % (35.0-45.0); HEMOGLOBIN 12.8 g/dl (12.0-16.0); LYMPHOCYTES # (AUTO) 0.5 X10'3 (1.1-4.8); LYMPHOCYTES % (AUTO) 10.5 % (21-51); MEAN CORPUSCULAR HEMOGLOBIN 31.5 PG (27.0-31.0); MEAN CORPUSCULAR HGB CONC 33.1 g/dL (33.0-36.5); MEAN CORPUSCULAR VOLUME 95.1 FL (78-98); MEAN PLATELET VOLUME 8.4 FL (7.4-10.4); MONOCYTES # (AUTO) 0.4 X10'3 (0-0.9); MONOCYTES % (AUTO) 8.1 % (2-12); NEUTROPHILS % (AUTO) 81.4 % (42-75); PLATELET COUNT 239 X10'3 (140-440); RED BLOOD COUNT 4.07 X10'6 (4.20-5.60); RED CELL DISTRIBUTION WIDTH 13.5 % (11.5-14.5)
[2020-03-09 04:58] LABS: ALANINE AMINOTRANSFERASE 51 U/L (12-78); ALBUMIN 3.2 G/DL (3.4-5.0); ALBUMIN/GLOBULIN RATIO 0.9 (1.1-1.5); ALKALINE PHOSPHATASE 60 IU/L (46-116); ANION GAP 4 (8-16); ASPARTATE AMINO TRANSFERASE 57 U/L (10-37); BILIRUBIN,TOTAL 0.4 MG/DL (0.1-1.0); BLOOD UREA NITROGEN 13 MG/DL (7-18); BUN/CREATININE RATIO 19.1 (6.6-38.0); CALCIUM 8.2 MG/DL (8.5-10.1); CHLORIDE 105 MMOL/L (99-107); CREATININE 0.68 MG/DL (0.40-0.90); GLUCOSE 115 MG/DL (70-104); POTASSIUM 4.2 MMOL/L (3.5-5.1); SODIUM 140 MMOL/L (135-145); TOTAL CARBON DIOXIDE 30.6 MMOL/L (24-32); TOTAL PROTEIN 6.6 G/DL (6.4-8.2); eGFR > 90 ML/MIN
[2020-03-09 07:00] VITALS: BP 142/86
--- NOTE | 2020-03-09 07:01 | NUR ---
Patient in room GINA 354. I have received report from James CHAUHAN and nursing program coordinator and had the opportunity to ask questions and assume patient care.
--- NOTE | 2020-03-09 07:24 | NUR ---
PAGER ID: [phone] MESSAGE: Kenzie-Surg [phone] Re: Omer [id number] patient very upset states Dr De Jesus was to discharge her last night, patient due at work this morning please call Awaiting response
--- NOTE | 2020-03-09 07:27 | NUR ---
Dr Camargo production material handler today aware of previous message she will be over very soon to see patient.
[2020-03-09] MEDS ORDERED: PRED10TA23 PO (08:01)
[2020-03-09] MEDS ORDERED: OMEP20CA15 PO (08:02)
[2020-03-09] MEDS ORDERED: ONDA4TAB6 PO (08:02)
== END 2020-03-09 08:25 | disposition home or self-care (01) | DRG 389 ==
LOC: ER 23:49 → ED HOLD 03-06 02:05 → PCU 3S 03-06 03:06 → SUR 3N 03-07 03:35
PROVIDERS: ADMIT Internal Medicine; ATTEND Internal Medicine
PROC: 0D9670Z Drainage of Stomach with Drainage Device, Via Natural or Artificial Opening (ICD-10-PCS; principal; 2020-03-06)
DX: K56.600 Partial intestinal obstruction, unspecified as to cause (principal); K50.90 Crohn's disease, unspecified, without complications; M19.90 Unspecified osteoarthritis, unspecified site; E87.6 Hypokalemia; K43.9 Ventral hernia without obstruction or gangrene; Z90.710 Acquired absence of both cervix and uterus; Z93.2 Ileostomy status; Z90.49 Acquired absence of other specified parts of digestive tract; Z98.891 History of uterine scar from previous surgery
CPT/HCPCS: 36415; 74176; 80053; 81001; 83690; 84703; 85025; 87081; 99285; G0378; J1170; J1644; J2405; J2920; J3010; J3480; J7030

== ENCOUNTER 2020-11-11 23:17 | Inpatient (IN) | payer BC, OTHER ==
[~2020-11-11] VITALS: Ht 167.6 cm; Wt 75.0 kg
[~2020-11-11 23:17] MED LIST changes: -BUDE3CAP15 PO; -DICY20TA17 PO; -FAMC500T23 PO; -HYDR-4383 PO; -LIDO30CR23 TOP; +OMEP20CA15 PO; +ONDA4TAB6 PO
[2020-11-11 23:52] LABS: BASOPHILS # (AUTO) 0.1 X10'3 (0-0.2); BASOPHILS % (AUTO) 0.5 % (0-1); EOSINOPHILS # (AUTO) 0.1 X10'3 (0-0.9); EOSINOPHILS % (AUTO) 1.1 % (0-6); HEMATOCRIT 38.6 % (35.0-45.0); HEMOGLOBIN 12.9 g/dl (12.0-16.0); LYMPHOCYTES # (AUTO) 1.7 X10'3 (1.1-4.8); LYMPHOCYTES % (AUTO) 13.6 % (21-51); MEAN CORPUSCULAR HEMOGLOBIN 32.3 PG (27.0-31.0); MEAN CORPUSCULAR HGB CONC 33.5 g/dL (33.0-36.5); MEAN CORPUSCULAR VOLUME 96.4 FL (78-98); MEAN PLATELET VOLUME 7.9 FL (7.4-10.4); MONOCYTES # (AUTO) 0.8 X10'3 (0-0.9); MONOCYTES % (AUTO) 6.9 % (2-12); NEUTROPHILS # (AUTO) 9.4 X10'3 (1.8-7.7); NEUTROPHILS % (AUTO) 77.9 % (42-75); PLATELET COUNT 325 X10'3 (140-440); RED BLOOD COUNT 4.01 X10'6 (4.20-5.60); RED CELL DISTRIBUTION WIDTH 13.6 % (11.5-14.5); WHITE BLOOD COUNT 12.1 X10'3 (4.5-11.0)
[2020-11-12] LABS: CLARITY,URINE CLEAR (Clear); COLOR,URINE YELLOW (Yellow); GLUCOSE, URINE NEGATIVE (Neg); KETONES,URINE NEGATIVE (Neg); LEUKOCYTE ESTERASE ,URINE NEGATIVE (Neg); NITRITES, URINE NEGATIVE (Neg); OCCULT BLOOD,URINE TRACE-INTACT (Neg); PROTEIN,URINE NEGATIVE (Neg); UROBILINOGEN,URINE 0.2 E.U/dL (0.2-1.0)
[2020-11-12] MEDS ORDERED: ondansetron/PF 4mg/2ml inj IV ONE
[2020-11-12 00:01] LABS: URINE HCG NEGATIVE (NEG)
[2020-11-12 00:03] LABS: UA COLLECTION TYPE CLN CATCH MIDSTREAM
[2020-11-12 00:05] LABS: BACTERIA,URINE 1+ /HPF (Neg); RBC,URINE 0-2 /HPF (0-2); WBC,URINE 0-4 /HPF (0-4)
[2020-11-12] MEDS ORDERED: methylPREDNISolone sod succ 125mg/2ml vial IV ONE ×2 (00:05→01:20)
[2020-11-12 00:06] LABS: ALANINE AMINOTRANSFERASE 39 U/L (12-78); ALBUMIN 3.4 G/DL (3.4-5.0); ALBUMIN/GLOBULIN RATIO 0.9 (1.1-1.5); ALKALINE PHOSPHATASE 79 IU/L (46-116); ANION GAP 10 (8-16); ASPARTATE AMINO TRANSFERASE 30 U/L (10-37); BILIRUBIN,TOTAL 0.3 MG/DL (0.1-1.0); BLOOD UREA NITROGEN 16 MG/DL (7-18); BUN/CREATININE RATIO 19.3 (6.6-38.0); CALCIUM 8.5 MG/DL (8.5-10.1); CHLORIDE 104 MMOL/L (99-107); CREATININE 0.83 MG/DL (0.40-0.90); GLUCOSE 91 MG/DL (70-104); LIPASE 171 U/L (73-393); POTASSIUM 3.5 MMOL/L (3.5-5.1); SODIUM 137 MMOL/L (135-145); TOTAL CARBON DIOXIDE 22.7 MMOL/L (24-32); TOTAL PROTEIN 7.1 G/DL (6.4-8.2); eGFR 74 ML/MIN
[2020-11-12 00:06] LABS: SQUAMOUS EPITHELIAL CELL,UR FEW /LPF (FEW)
[2020-11-12] MEDS ORDERED: piperacillin/tazo 3.375gm/50ml 50 ML IV ONE (00:15)
--- NOTE | 2020-11-12 00:32 | NUR ---
Clarified w/MD Benavidez no SIRS criteria at this time. Per glory MARMOLEJO to start Zosyn; no blood cultures.
--- NOTE | 2020-11-12 01:10 | NUR ---
Zosyn finishing infusing. Checked on patient who states she "feels itchy and my throat feels tight". MD Benavidez notified and is to bedside. VO to finish Zosyn infusion. New orders received.
[2020-11-12] MEDS ORDERED: normal saline 1000ML IV soln IVB STA (01:18)
[2020-11-12] MEDS ORDERED: epiNEPHrine 1 mg/ml inj ONE (01:20)
[2020-11-12] MEDS ORDERED: diphenhydrAMINE 50 mg/ml inj IV ONE (01:20)
[2020-11-12] MEDS ORDERED: epiNEPHrine 1 mg/ml inj SQ ONE (01:20)
[2020-11-12] MEDS ORDERED: fentaNYL/PF 50MCG/1 ML 2ML syringe IV ONE ×2 (01:40)
[2020-11-12] MEDS ORDERED: ondansetron/PF 4mg/2ml inj IV PRN (02:20)
[2020-11-12] MEDS ORDERED: magnesium hydroxide 30ml (MOM) UD suspension PO PRN (02:20)
[2020-11-12] MEDS ORDERED: magnesium Cl slow-release 64mg tablet PO PRN (02:20)
[2020-11-12] MEDS ORDERED: acetaminophen 325mg tablet PO PRN ×2 (02:20)
[2020-11-12] MEDS ORDERED: bisacodyl 10mg suppository rectal RC PRN (02:20)
[2020-11-12] MEDS ORDERED: acetaminophen 650mg rectal suppository RC PRN (02:20)
[2020-11-12] MEDS ORDERED: potassium Cl 40MEQ/1/2NS 520ml 520 ML IV PRN ×2 (02:20)
[2020-11-12] MEDS ORDERED: magnesium 2GM in 50ml NS 50 ML IV PRN (02:20)
[2020-11-12] MEDS ORDERED: magnesium 4gm in 100ml NS 100 ML IV PRN (02:20)
[2020-11-12] MEDS ORDERED: mag hydrox/Alum hydrox/simeth 30ml oral suspension PO PRN (02:20)
[2020-11-12] MEDS ORDERED: HYDROcodone/acetaminophen 5mg/325mg tablet PO PRN (02:20)
[2020-11-12] MEDS ORDERED: potassium Cl 20 mEq SR tablet PO PRN ×2 (02:20)
[2020-11-12] MEDS ORDERED: morphine 2 MG/ML inj. syringe IV PRN ×2 (02:20)
[2020-11-12] MEDS ORDERED: NO HOME MEDS (02:21)
[2020-11-12] MEDS: normal saline 1000ml 1,000 ML IV SCH ×3 (03:07→22:48)
[2020-11-12] MEDS: diatr meglu/diatrizoate 30ml oral sol.-(3 dose) bottle PO SCH ×3 (03:07→10:17)
[2020-11-12 04:00] VITALS: BP 93/55
[2020-11-12] MEDS: HYDROmorphone 1 mg/ml syringe IV PRN ×5 (04:00→22:54)
--- NOTE | 2020-11-12 07:00 | NUR ---
Patient in room GINA 346. I have received report from Pat RN and had the opportunity to ask questions and assume patient care.
[2020-11-12 07:30] VITALS: BP 88/60
[2020-11-12] MEDS: pantoprazole 40 MG vial IV SCH (07:48)
[2020-11-12] MEDS: K and/or MAG REPLACEMENT MC SCH ×2 (08:00→19:09)
[2020-11-12] MEDS ORDERED: methylPREDNISolone sod succ 125mg/2ml vial IV SCH (08:00)
[2020-11-12] MEDS ORDERED: diphenhydrAMINE 50 mg/ml inj IV SCH (08:00)
[2020-11-12] MEDS: famotidine/PF 10 mg/ml inj IV SCH ×2 (08:08→19:56)
[2020-11-12 11:00] VITALS: BP 83/52
[2020-11-12] MEDS: metoclopramide 5 mg/ml inj IV PRN ×2 (11:01→18:15)
[2020-11-12] MEDS ORDERED: diphenhydrAMINE 25mg capsule PO PRN (14:20)
--- NOTE | 2020-11-12 18:10 | NUR ---
BP 90/64, pt states pain 8/10. Spoke with GISSEL Laws, okay to give pain meds per patient request. Patient always runs low.
[2020-11-12 18:19] VITALS: BP 90/64
--- NOTE | 2020-11-12 18:29 | NUR ---
Problems reprioritized. Patient report given, questions answered & plan of care reviewed with Ana CHAUHAN.
[2020-11-12 20:00] VITALS: BP 89/56
[2020-11-12] MEDS ORDERED: temazepam 15mg capsule PO PRN (21:00)
[2020-11-12 23:57] VITALS: BP 93/60
[2020-11-13] MEDS: HYDROmorphone 1 mg/ml syringe IV PRN ×6 (03:10→22:17)
[2020-11-13 06:47] LABS: BASOPHILS % (AUTO) 0.2 % (0-1); EOSINOPHILS % (AUTO) 0 % (0-6); HEMATOCRIT 33.3 % (35.0-45.0); HEMOGLOBIN 11.1 g/dl (12.0-16.0); LYMPHOCYTES # (AUTO) 1.1 X10'3 (1.1-4.8); LYMPHOCYTES % (AUTO) 8.4 % (21-51); MEAN CORPUSCULAR HEMOGLOBIN 32.3 PG (27.0-31.0); MEAN CORPUSCULAR HGB CONC 33.2 g/dL (33.0-36.5); MEAN CORPUSCULAR VOLUME 97.2 FL (78-98); MEAN PLATELET VOLUME 8.3 FL (7.4-10.4); MONOCYTES # (AUTO) 0.9 X10'3 (0-0.9); MONOCYTES % (AUTO) 6.8 % (2-12); NEUTROPHILS # (AUTO) 10.6 X10'3 (1.8-7.7); NEUTROPHILS % (AUTO) 84.6 % (42-75); PLATELET COUNT 270 X10'3 (140-440); RED BLOOD COUNT 3.42 X10'6 (4.20-5.60); RED CELL DISTRIBUTION WIDTH 13.5 % (11.5-14.5); WHITE BLOOD COUNT 12.5 X10'3 (4.5-11.0)
[2020-11-13 06:54] LABS: ALANINE AMINOTRANSFERASE 27 U/L (12-78); ALBUMIN 2.8 G/DL (3.4-5.0); ALBUMIN/GLOBULIN RATIO 0.8 (1.1-1.5); ALKALINE PHOSPHATASE 61 IU/L (46-116); ANION GAP 9 (8-16); ASPARTATE AMINO TRANSFERASE 16 U/L (10-37); BILIRUBIN,TOTAL 0.5 MG/DL (0.1-1.0); BLOOD UREA NITROGEN 14 MG/DL (7-18); BUN/CREATININE RATIO 20.3 (6.6-38.0); CALCIUM 7.5 MG/DL (8.5-10.1); CHLORIDE 108 MMOL/L (99-107); CREATININE 0.69 MG/DL (0.40-0.90); GLUCOSE 117 MG/DL (70-104); MAGNESIUM 2.2 MG/DL (1.5-2.4); POTASSIUM 3.8 MMOL/L (3.5-5.1); SODIUM 141 MMOL/L (135-145); TOTAL CARBON DIOXIDE 24.4 MMOL/L (24-32); TOTAL PROTEIN 6.1 G/DL (6.4-8.2); eGFR > 90 ML/MIN
[2020-11-13 08:00] VITALS: BP 91/56
[2020-11-13] MEDS: K and/or MAG REPLACEMENT MC SCH ×2 (08:00→20:00)
[2020-11-13] MEDS: normal saline 1000ml 1,000 ML IV SCH ×2 (08:13→17:38)
[2020-11-13] MEDS: pantoprazole 40 MG vial IV SCH (08:14)
[2020-11-13] MEDS: famotidine/PF 10 mg/ml inj IV SCH ×2 (08:15→19:49)
[2020-11-13 11:00] VITALS: BP 89/54
[2020-11-13 18:00] VITALS: BP 93/52
--- NOTE | 2020-11-13 18:40 | NUR ---
Problems reprioritized. Patient report given, questions answered & plan of care reviewed with Neo CHAUHAN. Pt just coming out of the restroom, no N/V, no signs of distress, NG is clamped.
--- NOTE | 2020-11-13 18:51 | NUR ---
I have received report from GISSEL Perez and had the opportunity to ask questions and assume patient care.
[2020-11-14] VITALS: BP 92/60
[2020-11-14] MEDS: normal saline 1000ml 1,000 ML IV SCH ×2 (03:31→14:29)
[2020-11-14] MEDS: HYDROmorphone 1 mg/ml syringe IV PRN (03:37)
--- NOTE | 2020-11-14 05:50 | NUR ---
Patient NG was clamped all shift and did not have any distention, or nausea, until 0540 when she had an emesis of 25mL . Patient is refusing for me to connect her to suction, and does not want any nausea medication at this time. Patient is teary. I told her to hold off on ice chips and if she does have an emesis again then she will need to be connected to suction. She confirmed my statement.
--- NOTE | 2020-11-14 06:15 | NUR ---
Patient in room GINA 346. I have received report from GISSEL Larson and had the opportunity to ask questions and assume patient care.
[2020-11-14 06:20] LABS: BASOPHILS % (AUTO) 0.4 % (0-1); EOSINOPHILS % (AUTO) 0.3 % (0-6); HEMOGLOBIN 10.7 g/dl (12.0-16.0); LYMPHOCYTES # (AUTO) 1.3 X10'3 (1.1-4.8); LYMPHOCYTES % (AUTO) 16.3 % (21-51); MEAN CORPUSCULAR HEMOGLOBIN 31.8 PG (27.0-31.0); MEAN CORPUSCULAR HGB CONC 32.5 g/dL (33.0-36.5); MEAN CORPUSCULAR VOLUME 97.8 FL (78-98); MEAN PLATELET VOLUME 8.4 FL (7.4-10.4); MONOCYTES # (AUTO) 0.6 X10'3 (0-0.9); MONOCYTES % (AUTO) 6.9 % (2-12); NEUTROPHILS # (AUTO) 6.2 X10'3 (1.8-7.7); NEUTROPHILS % (AUTO) 76.1 % (42-75); PLATELET COUNT 245 X10'3 (140-440); RED BLOOD COUNT 3.38 X10'6 (4.20-5.60); RED CELL DISTRIBUTION WIDTH 13.7 % (11.5-14.5); WHITE BLOOD COUNT 8.1 X10'3 (4.5-11.0)
--- NOTE | 2020-11-14 06:29 | NUR ---
Problems reprioritized. Patient report given, questions answered & plan of care reviewed with GISSEL Parsons.
[2020-11-14 06:32] LABS: ALANINE AMINOTRANSFERASE 28 U/L (12-78); ALBUMIN 2.6 G/DL (3.4-5.0); ALBUMIN/GLOBULIN RATIO 0.8 (1.1-1.5); ALKALINE PHOSPHATASE 59 IU/L (46-116); ANION GAP 8 (8-16); ASPARTATE AMINO TRANSFERASE 25 U/L (10-37); BILIRUBIN,TOTAL 0.4 MG/DL (0.1-1.0); BLOOD UREA NITROGEN 13 MG/DL (7-18); BUN/CREATININE RATIO 25.5 (6.6-38.0); CALCIUM 7.6 MG/DL (8.5-10.1); CHLORIDE 108 MMOL/L (99-107); CREATININE 0.51 MG/DL (0.40-0.90); GLUCOSE 83 MG/DL (70-104); POTASSIUM 3.5 MMOL/L (3.5-5.1); SODIUM 141 MMOL/L (135-145); TOTAL CARBON DIOXIDE 25.2 MMOL/L (24-32); TOTAL PROTEIN 5.7 G/DL (6.4-8.2); eGFR > 90 ML/MIN
[2020-11-14 07:00] VITALS: BP 93/57
[2020-11-14] MEDS: K and/or MAG REPLACEMENT MC SCH ×2 (07:01→20:00)
[2020-11-14] MEDS: famotidine/PF 10 mg/ml inj IV SCH (08:22)
[2020-11-14] MEDS: pantoprazole 40 MG vial IV SCH (08:22)
[2020-11-14] MEDS: HYDROmorphone inj. 0.5 MG/0.5 ML DISP.SYRIN IV PRN ×2 (08:23→12:51)
[2020-11-14 11:00] VITALS: BP 103/63
[2020-11-14] MEDS: HYDROcodone/acetaminophen 10/325mg tab PO PRN (17:53)
--- NOTE | 2020-11-14 18:37 | NUR ---
Problems reprioritized. Patient report given, questions answered & plan of care reviewed with GISSEL Larson.
--- NOTE | 2020-11-14 18:39 | NUR ---
I have received report from GISSEL Parsons and had the opportunity to ask questions and assume patient care.
[2020-11-14 20:00] VITALS: BP 109/65
[2020-11-14] MEDS: famotidine 20mg tablet PO SCH (20:52)
[2020-11-15 00:22] VITALS: BP 96/61
[2020-11-15] MEDS: HYDROcodone/acetaminophen 10/325mg tab PO PRN ×3 (01:01→11:13)
--- NOTE | 2020-11-15 06:09 | NUR ---
Problems reprioritized. Patient report given, questions answered & plan of care reviewed with GISSEL Parsons.
--- NOTE | 2020-11-15 06:26 | NUR ---
Patient in room GINA 346. I have received report from GISSEL Larson and had the opportunity to ask questions and assume patient care.
[2020-11-15 06:35] LABS: BASOPHILS # (AUTO) 0.1 X10'3 (0-0.2); EOSINOPHILS # (AUTO) 0.1 X10'3 (0-0.9); EOSINOPHILS % (AUTO) 1.1 % (0-6); HEMATOCRIT 36.8 % (35.0-45.0); HEMOGLOBIN 12.2 g/dl (12.0-16.0); LYMPHOCYTES # (AUTO) 1.6 X10'3 (1.1-4.8); LYMPHOCYTES % (AUTO) 19.2 % (21-51); MEAN CORPUSCULAR HEMOGLOBIN 32.1 PG (27.0-31.0); MEAN CORPUSCULAR HGB CONC 33.3 g/dL (33.0-36.5); MEAN CORPUSCULAR VOLUME 96.3 FL (78-98); MEAN PLATELET VOLUME 8.3 FL (7.4-10.4); MONOCYTES # (AUTO) 0.6 X10'3 (0-0.9); MONOCYTES % (AUTO) 7.2 % (2-12); NEUTROPHILS # (AUTO) 6.2 X10'3 (1.8-7.7); NEUTROPHILS % (AUTO) 71.5 % (42-75); PLATELET COUNT 291 X10'3 (140-440); RED BLOOD COUNT 3.82 X10'6 (4.20-5.60); RED CELL DISTRIBUTION WIDTH 13.3 % (11.5-14.5); WHITE BLOOD COUNT 8.6 X10'3 (4.5-11.0)
[2020-11-15 06:50] LABS: ALANINE AMINOTRANSFERASE 33 U/L (12-78); ALBUMIN 2.8 G/DL (3.4-5.0); ALBUMIN/GLOBULIN RATIO 0.8 (1.1-1.5); ALKALINE PHOSPHATASE 69 IU/L (46-116); ANION GAP 7 (8-16); ASPARTATE AMINO TRANSFERASE 24 U/L (10-37); BILIRUBIN,TOTAL 0.6 MG/DL (0.1-1.0); BLOOD UREA NITROGEN 4 MG/DL (7-18); BUN/CREATININE RATIO 7.3 (6.6-38.0); CALCIUM 7.6 MG/DL (8.5-10.1); CHLORIDE 107 MMOL/L (99-107); CREATININE 0.55 MG/DL (0.40-0.90); GLUCOSE 87 MG/DL (70-104); MAGNESIUM 2.1 MG/DL (1.5-2.4); POTASSIUM 3.4 MMOL/L (3.5-5.1); SODIUM 140 MMOL/L (135-145); TOTAL CARBON DIOXIDE 26.4 MMOL/L (24-32); TOTAL PROTEIN 6.2 G/DL (6.4-8.2); eGFR > 90 ML/MIN
[2020-11-15 07:00] VITALS: BP 105/59
[2020-11-15] MEDS: K and/or MAG REPLACEMENT MC SCH (07:08)
[2020-11-15] MEDS: famotidine 20mg tablet PO SCH (07:15)
[2020-11-15] MEDS ORDERED: pantoprazole 40mg Tablet.DR PO SCH (08:00)
[2020-11-15 11:19] VITALS: BP 82/49
[2020-11-15] MEDS ORDERED: potassium Cl 20 mEq SR tablet PO STA (11:46)
--- NOTE | 2020-11-15 11:49 | NUR ---
Informed Dr. Camargo of patient potassium level of 3.4 and no protocol orders. Dr. Camargo gave an order for one time dose of 20 mEq prior to discharge.
[2020-11-15 14:54] VITALS: BP 110/69
[2020-11-15] MEDS ORDERED: PANT40TA54 PO (15:00)
[2020-11-15] MEDS ORDERED: ONDA4TAB6 PO (15:00)
[2020-11-15] MEDS ORDERED: ACET-1008 PO (15:02)
--- NOTE | 2020-11-15 16:13 | NUR ---
Patient discharged via self and taken from unit via wheelchair with x1 staff. Patient alert, oriented and in no apparent distress at time of discharge. Patient PIV was removed last night and was not replaced per MD order. Patient took all belongings with her upon discharge. New prescriptions were called into [facility] per patient's request. Patient discharge instructions were discussed with the patient including following up, risk factors, when to seek medical attentions and medication and when to take next dose. Patient stated an understanding of discharge instructions and states she plans to follow up with PCP so that she can get a referral to see he GI specialist in [place].
== END 2020-11-15 15:35 | disposition home or self-care (01) | DRG 386 ==
LOC: ER 23:17 → ED HOLD 11-12 02:19 → SUR 3N 11-12 03:45
PROVIDERS: ADMIT Family Medicine; ATTEND Family Medicine
PROC: 0D9670Z Drainage of Stomach with Drainage Device, Via Natural or Artificial Opening (ICD-10-PCS; principal; 2020-11-12)
DX: K50.912 Crohn's disease, unspecified, with intestinal obstruction (principal); T88.6XXA Anaphylactic reaction due to adverse effect of correct drug or medicament properly administered, initial encounter; M19.90 Unspecified osteoarthritis, unspecified site; T36.0X5A Adverse effect of penicillins, initial encounter; Z93.2 Ileostomy status; Z90.710 Acquired absence of both cervix and uterus; Z93.3 Colostomy status; Y92.89 Other specified places as the place of occurrence of the external cause; Z88.8 Allergy status to other drugs, medicaments and biological substances; Z90.49 Acquired absence of other specified parts of digestive tract
CPT/HCPCS: 36415; 74176; 80053; 81001; 81003; 81025; 83690; 83735; 84145; 85025; 87081; 99285; C9113; G0378; J0171; J1170; J1200; J2405; J2543; J2765; J2930; J3010; J3490; J7030; Q9963

== ENCOUNTER 2021-03-16 13:14 | Emergency (ER) | payer BC ==
[~2021-03-16] VITALS: Ht 167.6 cm; Wt 81.4 kg
[~2021-03-16 13:14] MED LIST changes: -OMEP20CA15 PO; +PANT40TA54 PO
[2021-03-16 13:20] VITALS: BP 120/78
== END 2021-03-16 16:51 | disposition left against medical advice (07) ==
LOC: ER 13:16
DX: K59.00 Constipation, unspecified (principal); Z53.21 Procedure and treatment not carried out due to patient leaving prior to being seen by health care provider

== ENCOUNTER 2021-05-03 18:10 | Emergency (ER) | payer BC ==
[~2021-05-03] VITALS: Ht 167.6 cm; Wt 81.8 kg
[2021-05-03 18:18] VITALS: BP 124/83
[2021-05-03 18:54] LABS: BASOPHILS % (AUTO) 0.5 % (0-1); EOSINOPHILS # (AUTO) 0.1 X10'3 (0-0.9); EOSINOPHILS % (AUTO) 1.2 % (0-6); HEMATOCRIT 38.4 % (35.0-45.0); HEMOGLOBIN 13.2 g/dl (12.0-16.0); LYMPHOCYTES # (AUTO) 0.6 X10'3 (1.1-4.8); LYMPHOCYTES % (AUTO) 8.1 % (21-51); MEAN CORPUSCULAR HGB CONC 34.4 g/dL (33.0-36.5); MEAN PLATELET VOLUME 7.7 FL (7.4-10.4); MONOCYTES # (AUTO) 0.4 X10'3 (0-0.9); MONOCYTES % (AUTO) 4.5 % (2-12); NEUTROPHILS # (AUTO) 6.8 X10'3 (1.8-7.7); NEUTROPHILS % (AUTO) 85.7 % (42-75); PLATELET COUNT 290 X10'3 (140-440); RED BLOOD COUNT 4.27 X10'6 (4.20-5.60); RED CELL DISTRIBUTION WIDTH 14.7 % (11.5-14.5)
[2021-05-03 18:58] LABS: URINE HCG NEGATIVE (NEG)
[2021-05-03 19:03] LABS: CLARITY,URINE SLIGHTLY CLOUDY (Clear); COLOR,URINE YELLOW (Yellow); GLUCOSE, URINE NEGATIVE (Neg); KETONES,URINE 15 mg/dl (Neg); LEUKOCYTE ESTERASE ,URINE NEGATIVE (Neg); NITRITES, URINE NEGATIVE (Neg); OCCULT BLOOD,URINE TRACE-INTACT (Neg); PH,URINE 5.5 (4.8-8.0); PROTEIN,URINE 30 mg/dl (Neg); UROBILINOGEN,URINE 0.2 E.U/dL (0.2-1.0)
[2021-05-03 19:08] LABS: ALANINE AMINOTRANSFERASE 46 U/L (12-78); ALBUMIN 3.2 G/DL (3.4-5.0); ALBUMIN/GLOBULIN RATIO 0.8 (1.1-1.5); ALKALINE PHOSPHATASE 123 IU/L (46-116); ANION GAP 13 (8-16); ASPARTATE AMINO TRANSFERASE 41 U/L (10-37); BILIRUBIN,TOTAL 0.3 MG/DL (0.1-1.0); BLOOD UREA NITROGEN 18 MG/DL (7-18); BUN/CREATININE RATIO 23.1 (6.6-38.0); CALCIUM 8.6 MG/DL (8.5-10.1); CHLORIDE 103 MMOL/L (99-107); CREATININE 0.78 MG/DL (0.40-0.90); GLUCOSE 97 MG/DL (70-104); POTASSIUM 3.3 MMOL/L (3.5-5.1); SODIUM 139 MMOL/L (135-145); TOTAL CARBON DIOXIDE 22.8 MMOL/L (24-32); TOTAL PROTEIN 7.3 G/DL (6.4-8.2); eGFR 80 ML/MIN
[2021-05-03 19:08] LABS: BACTERIA,URINE FEW /HPF (Neg); RBC,URINE 0-2 /HPF (0-2); SQUAMOUS EPITHELIAL CELL,UR MODERATE /LPF (FEW); UA COLLECTION TYPE CLN CATCH MIDSTREAM; WBC,URINE 0-4 /HPF (0-4)
[2021-05-03] MEDS ORDERED: ketorolac tromethamine 15mg/ml inj. IM ONE (19:10)
[2021-05-03] MEDS ORDERED: azithromycin 250mg tablet PO ONE (20:55)
[2021-05-03] MEDS ORDERED: AZIT250T83 PO (21:01)
[2021-05-03] MEDS ORDERED: METO5TAB85 PO (21:03)
== END 2021-05-03 21:30 | disposition home or self-care (01) ==
LOC: ER 18:11
DX: J18.8 Other pneumonia, unspecified organism (principal); Z88.0 Allergy status to penicillin; Z79.899 Other long term (current) drug therapy
CPT/HCPCS: 36415; 71045; 80053; 81001; 81025; 85025; 87502; 87503; 96372; 99284; J1885

== ENCOUNTER 2025-01-30 16:23 | Emergency (ER) | payer BC, MEDICAID ==
[~2025-01-30] VITALS: Ht 167.6 cm; Wt 51.0 kg
[~2025-01-30 16:23] MED LIST changes: +METO5TAB85 PO
[2025-01-30 16:44] VITALS: BP 127/87; PULSE 108; RESP 18; O2SAT 99
[2025-01-30 18:08] VITALS: TEMP 98.6
== END 2025-01-30 18:10 | disposition home or self-care (01) ==
LOC: ER 16:24
DX: Z43.3 Encounter for attention to colostomy (principal); M19.90 Unspecified osteoarthritis, unspecified site; Z88.0 Allergy status to penicillin; Z88.8 Allergy status to other drugs, medicaments and biological substances; Z90.49 Acquired absence of other specified parts of digestive tract; Z90.710 Acquired absence of both cervix and uterus
CPT/HCPCS: 99281; A4421